=== PATIENT | male | born 1980 | race African-American/Black ===

== ENCOUNTER 2022-03-26 20:52 | Emergency (ER) | payer SELFPAY ==
[~2022-03-26] VITALS: Ht 180.3 cm; Wt 131.5 kg
--- NOTE | 2022-03-26 21:14 | NUR ---
Patient walked to ER with steady gait c/o RT sided abd pain radiating to the back since 1900 today. Patient has hx of pancreatitis. A/Ox4 Addendum: 03/26/22 at 2307 by MIREILLE Wrong patient
--- NOTE | 2022-03-26 21:23 | NUR ---
Dr. Jose at bedside for MSE.
[2022-03-26] MEDS ORDERED: IV NORMAL SALINE 1000 ML BAG IV ONE (21:30)
[2022-03-26] MEDS ORDERED: ONDANSETRON 4 MG/2 ML VIAL IV ONE (21:30)
[2022-03-26] MEDS ORDERED: KETOROLAC TROMETHAMINE 30 MG INJ IVP ONE (21:30)
[2022-03-26] MEDS ORDERED: HYDROMORPHONE 1 MG/1 ML DISP.SYRIN IV ONE (21:30)
[2022-03-26] MEDS ORDERED: ONDANSETRON 4 MG/2 ML VIAL ONE (21:34)
[2022-03-26] MEDS ORDERED: KETOROLAC TROMETHAMINE 30 MG INJ ONE (21:34)
[2022-03-26] MEDS ORDERED: HYDROMORPHONE 1 MG/1 ML DISP.SYRIN ONE (21:35)
[2022-03-26 21:48] LABS: HEMATOCRIT 44.2 % (36.7-47.1); MEAN CORPUSCULAR HEMOGLOBIN 31.4 uug (23.8-33.4); MEAN CORPUSCULAR VOLUME 91.7 fL (73.0-96.2); PLATELET COUNT (AUTO) 273 K/uL (152-348)
[2022-03-26 21:54] LABS: CARBON DIOXIDE 32 mmol/L (21-32); CHLORIDE 101 mmol/L (98-107); CREATININE 1.1 mg/dL (0.6-1.3); GLUCOSE 121 mg/dL (74-106); POTASSIUM 3.1 mmol/L (3.5-5.1); UREA NITROGEN, BLOOD 13 mg/dL (7-18)
[2022-03-26 22:03] LABS: ALANINE AMINOTRANSFERASE 38 U/L (16-63); ALKALINE PHOSPHATASE 84 U/L (50-136); ASPARTATE AMINOTRANSFERASE 19 U/L (15-37); BILIRUBIN,DIRECT 0.2 mg/dL (0.0-0.2); BILIRUBIN,TOTAL 0.4 mg/dL (0.2-1.0); LIPASE 154 U/L (73-393); TOTAL PROTEIN, SERUM 8.9 g/dL (6.4-8.2)
--- NOTE | 2022-03-26 22:42 | NUR ---
Dr Jose made aware of patient BP 168/109.
[2022-03-26 22:48] VITALS: BP 140/92
--- NOTE | 2022-03-26 22:48 | NUR ---
Patient discharged to home in stable condition. Written and verbal after care instructions given. Patient verbalizes understanding of instructions. Stressed follow up or return to ER for worsening s/s. Pt ambulated out of the ER with steady gait. All belongings with pt.
[2022-03-26] MEDS ORDERED: HYDR-3980 PO (23:20)
[2022-03-26] MEDS ORDERED: IBUP-1490 PO (23:20)
[2022-03-26] MEDS ORDERED: ONDA4TAB5 PO (23:20)
--- NOTE | 2022-03-26 23:37 | NUR ---
Micah gaona in EDM - 03/26/22 at 2337 by MIREILLE Patient walked to ER with steady gait c/o RT sided abd pain radiating to the back since 1900 today. Patient has hx of pancreatitis. A/Ox4
== END 2022-03-26 23:37 | disposition home or self-care (01) ==
LOC: ER 21:00
DX: R10.10 Upper abdominal pain, unspecified (principal); K80.20 Calculus of gallbladder without cholecystitis without obstruction; I10 Essential (primary) hypertension; E66.3 Overweight; Z68.41 Body mass index [BMI] 40.0-44.9, adult; R94.31 Abnormal electrocardiogram [ECG] [EKG]
CPT/HCPCS: 99285; 96374; 76705; 71045; 96375; 96361; 80076; 80048; 83690; 85025; 84484 ×2; 36415; 93005; J1885; J2405; J1170; J7040